=== PATIENT | female | born 2005 | race Caucasian/White ===

== ENCOUNTER 2023-06-27 10:27 | Observation (INO) ==
[2023-06-27] MEDS: Ondansetron 4 mg VIAL 2 MG/ML 2 ml VIAL IV ONE ×2 (11:33→16:16)
[2023-06-27] MEDS: NS 0.9% 1000 ml BAG 1,000 ML IV ONE (11:33)
[2023-06-27 11:47] LABS: ABS Lymphocytes 0.3 10^3/uL (1.0-4.8); ABS Monocytes 0.5 10^3/uL (0.0-0.9); ABS Neutrophils 7.5 10^3/uL (1.5-7.6); Eosinophil % 0.3 %; Hematocrit 41.6 % (35-45); Hemoglobin 14.2 g/dL (11.5-14.3); Lymphocyte % 3.2 %; Mean Corpuscular Hemoglobin 30.8 pg (27-33); Mean Corpuscular Hgb Conc 34.2 g/dL (31-36); Mean Corpuscular Volume 90.3 fL (80-97); Mean Platelet Volume 7.1 fL (7.5-11.2); Platelet Count 196 10^3/uL (150-450); Red Blood Count 4.61 10^6/uL (3.63-4.92); Red Cell Distribution Width 12.1 % (12-17); White Blood Count 8.4 10^3/uL (3.8-11.8)
[2023-06-27 13:06] LABS: ALT 7 U/L (7-52); AST 12 U/L (13-39); Albumin 4.6 g/dL (3.2-5.2); Albumin/Globulin Ratio 1.8 (1-3); Alkaline Phosphatase 42 U/L (35-149); Anion Gap 9 mmol/L (2-16); Blood Urea Nitrogen 14 mg/dL (6-24); CO2 Carbon Dioxide 25 mmol/L (22-32); Chloride 105 mmol/L (101-111); Creatinine, Serum 0.79 mg/dL (0.51-0.95); Globulin 2.5 g/dL (2-4); Glucose 113 mg/dL (70-100); Lipase 29 U/L (11.0-82.0); Sodium 139 mmol/L (135-145); Total Bilirubin 0.7 mg/dL (0.2-1.0); Total Protein 7.1 g/dL (6.4-8.9); eGFR CKD-EPI 110.4 (>60)
[2023-06-27 13:08] LABS: HCG Pregnancy < 0.60 mIU/mL
[2023-06-27] MEDS: Morphine 4 MG/ML VIAL (1 ml) IV ONE (16:16)
[2023-06-27 16:26] LABS: Urine Appearance Clear; Urine Bilirubin Negative (Negative); Urine Blood Negative (Negative); Urine Color Yellow; Urine Glucose Negative (Negative); Urine Ketones Negative (Negative); Urine Nitrite Negative (Negative); Urine Protein Trace (Negative); Urine Specific Gravity 1.038 (1.002-1.030); Urine Urobilinogen Negative (Negative)
[2023-06-27 16:32] LABS: Urine Bacteria 1+ /HPF (Absent); Urine Red Blood Cell Trace(0-2/hpf) /HPF (0-Trace); Urine Squamous Epithelial Cell Present /HPF (Absent); Urine White Blood Cell Trace(0-5/hpf) /HPF (0-Trace)
[2023-06-27] MEDS: Iohexol 300 (CONTRAST) 10 ML SDV IV ONE (17:55)
[2023-06-27] MEDS: Droperidol 5 MG/2 ML 2 ML VIAL IV ONE (19:28)
[2023-06-27] MEDS: cefTRIAXone 1 gm/50 mL D5W 1 GM/50 ML BAG IV ONE (20:08)
[2023-06-27] MEDS: HYDROmorphone 0.5 MG/0.5 ML SYRINGE IV SLOW PU ONE (20:08)
[2023-06-27] MEDS: Lactated Ringers 1000 ml BAG 1,000 ML IV ONE (20:08)
[2023-06-27 21:01] LABS: ABS Lymphocytes 0.3 10^3/uL (1.0-4.8); ABS Monocytes 0.3 10^3/uL (0.0-0.9); ABS Neutrophils 3.9 10^3/uL (1.5-7.6); ABS Nucleated RBC 0.01 10^3/ul; Eosinophil % 0.2 %; Hematocrit 35.7 % (35-45); Hemoglobin 12.2 g/dL (11.5-14.3); Lymphocyte % 6.7 %; Mean Corpuscular Hgb Conc 34.3 g/dL (31-36); Mean Corpuscular Volume 90.3 fL (80-97); Mean Platelet Volume 7.4 fL (7.5-11.2); Nucleated Red Blood Cells % 0.2 %/100WBC (0.0-0.8); Platelet Count 146 10^3/uL (150-450); Red Blood Count 3.95 10^6/uL (3.63-4.92); White Blood Count 4.5 10^3/uL (3.8-11.8)
[2023-06-27] MEDS: metroNIDAZOLE IV 500 MG/100ML 500 MG/100 ML BAG IVPB ONE (22:31)
[2023-06-27] MEDS: DOXYcycline 100 MG in NS 0.9% 250 ml 250 ML IVPB ONE (23:37)
[2023-06-28 00:21] LABS: Hematocrit 33.4 % (35-45); Hemoglobin 11.8 g/dL (11.5-14.3)
[2023-06-28] MEDS: Lactated Ringers 1000 ml BAG 1,000 ML IV SCH (04:56)
[2023-06-28] MEDS: Lactated Ringers 1000 ml BAG 1,000 ML IV ONE (05:56)
[2023-06-28 09:44] LABS: ABS Lymphocytes 0.4 10^3/uL (1.0-4.8); ABS Monocytes 0.3 10^3/uL (0.0-0.9); ABS Neutrophils 1.4 10^3/uL (1.5-7.6); Eosinophil % 0.5 %; Hematocrit 35.2 % (35-45); Hemoglobin 12.2 g/dL (11.5-14.3); Lymphocyte % 18.7 %; Mean Corpuscular Hemoglobin 31.5 pg (27-33); Mean Corpuscular Hgb Conc 34.7 g/dL (31-36); Mean Corpuscular Volume 90.8 fL (80-97); Mean Platelet Volume 7.1 fL (7.5-11.2); Nucleated Red Blood Cells % 0.2 %/100WBC (0.0-0.8); Platelet Count 144 10^3/uL (150-450); Red Blood Count 3.87 10^6/uL (3.63-4.92); White Blood Count 2.2 10^3/uL (3.8-11.8)
[2023-06-28] MEDS ORDERED: metroNIDAZOLE IV 500 MG/100ML 500 MG/100 ML BAG IVPB SCH (10:00)
[2023-06-28] MEDS: metroNIDAZOLE IV 500 MG/100ML 500 MG/100 ML BAG IVPB SCH (10:12)
[2023-06-28 10:48] LABS: Calcium 7.7 mg/dL (8.6-10.3); Creatinine, Serum 0.69 mg/dL (0.51-0.95); Potassium 4.1 mmol/L (3.5-5.0); eGFR CKD-EPI 128.1 (>60)
[2023-06-28] MEDS ORDERED: DOXYcycline 100 MG in NS 0.9% 250 ml 250 ML IVPB SCH (11:00)
[2023-06-28] MEDS: DOXYcycline 100 MG in NS 0.9% 250 ml 250 ML IVPB SCH (11:06)
[2023-06-28 12:21] VITALS: BP 106/66
[2023-06-28 12:39] LABS: Chlamydia trachomatis NAA Negative (Negative); Neisseria gonorrhoeae (GC) NAA Negative (Negative)
[2023-06-28] MEDS ORDERED: cefTRIAXone 1 gm/50 mL D5W 1 GM/50 ML BAG IV SCH ×2 (20:00)
[2023-06-30 10:12] LABS: Anaplasma phagocytophilum Negative (Negative); B. miyamotoi PCR, B Negative (Negative); Babesia divergens/MO-1 Negative (Negative); Babesia ducani Negative (Negative); Ehrlichia chaffeensis Negative (Negative); Ehrlichia ewingii/canis Negative (Negative); Ehrlichia muris eauclairensis Negative (Negative)
== END 2023-06-28 12:22 | disposition home or self-care (01) ==
LOC: ED 10:27 → EDHOLD 10:27 → SUATTDRO 23:34 → MEDTELE 06-28 08:46 → EDHOLD 06-28 12:21
PROVIDERS: ADMIT Internal Medicine; ATTEND Internal Medicine